=== PATIENT | female | born 1940 | race Caucasian/White ===

== ENCOUNTER 2018-03-14 11:00 | Day surgery (SDC) | payer MEDICARE, OTHER ==
[~2018-03-14] VITALS: Ht 160 cm; Wt 99.3 kg
[~2018-03-14 11:00] MED LIST: ACETAMIN-CODE12.5 ML PO; ATEN100 PO; ATENOLOL; BUME2 PO; CEPH500 PO; CLOT10 SS; CLOTRIMAZOLE MM; CODACE30 PO; COLCRYS0.6 MG PO; DILTIAZEM 240 MG PO; Dexamethasone4 MG PO; Diltiazem ER240 M1 PO; HYDACE5325 PO; HYDCHL25 PO; IBUP800 PO; LISINOPRIL; MECL25 PO; MERIPEX; METF500 PO; METF500C PO; METFORMIN; MINO100 PO; MIRAPEX; NAPR220 PO; NAPR375 PO; NYSTRI30T TOP; OMEP20ER PO; ONDA8 PO; PRAM.5 PO; ROPI2 PO; [UNRECOGNIZED DRUG - OTHER] PO
[2018-03-14] MEDS ORDERED: POTCHL10ER PO (11:19)
[2018-03-14] MEDS ORDERED: NYSTRITC (11:20)
[2018-03-14] MEDS ORDERED: ANASTROZOLE5 GM (11:20)
[2018-03-14] MEDS ORDERED: ASPI81CH (11:20)
[2018-03-14] MEDS ORDERED: Hair, Skin & N1 EACH (11:21)
[2018-03-14] MEDS ORDERED: CHOL10002 (11:21)
== END 2018-03-14 12:17 | disposition home or self-care (01) ==
LOC: ORSCSDS 11:00
PROVIDERS: Anesthesiology
PROC: 3E0R33Z Introduction of Anti-inflammatory into Spinal Canal, Percutaneous Approach (ICD-10-PCS; principal; 2018-03-14 12:00)
DX: M51.16 Intervertebral disc disorders with radiculopathy, lumbar region (principal); M96.1 Postlaminectomy syndrome, not elsewhere classified; E11.9 Type 2 diabetes mellitus without complications; I10 Essential (primary) hypertension; Z87.891 Personal history of nicotine dependence; E66.01 Morbid (severe) obesity due to excess calories; Z68.39 Body mass index [BMI] 39.0-39.9, adult; Z79.84 Long term (current) use of oral hypoglycemic drugs; Z79.899 Other long term (current) drug therapy
CPT/HCPCS: J1040; J2001

== ENCOUNTER 2018-10-29 13:57 | Day surgery (SDC) | payer MEDICARE, OTHER ==
[~2018-10-29] VITALS: Ht 160 cm; Wt 92.8 kg
[~2018-10-29 13:57] MED LIST changes: +ANASTROZOLE5 GM; +ASPI81CH; +CHOL10002; +ESCI5 PO; +Hair, Skin & N1 EACH; +NYSTRITC; +POTCHL10ER PO
== END 2018-10-29 14:44 | disposition home or self-care (01) ==
LOC: ORSCSDS 13:57
PROVIDERS: Anesthesiology
PROC: 3E0R33Z Introduction of Anti-inflammatory into Spinal Canal, Percutaneous Approach (ICD-10-PCS; principal; 2018-10-29 14:45)
DX: M51.16 Intervertebral disc disorders with radiculopathy, lumbar region (principal); M96.1 Postlaminectomy syndrome, not elsewhere classified; I10 Essential (primary) hypertension; F32.9 Major depressive disorder, single episode, unspecified; E11.9 Type 2 diabetes mellitus without complications; E66.9 Obesity, unspecified; Z68.36 Body mass index [BMI] 36.0-36.9, adult; Z79.82 Long term (current) use of aspirin; Z79.84 Long term (current) use of oral hypoglycemic drugs; Z79.899 Other long term (current) drug therapy
CPT/HCPCS: J1040

== ENCOUNTER → 2018-12-29 | Outpatient (CLI) | payer MEDICARE, OTHER | END | disposition home or self-care (01) | LOC: LAB 16:15 → LAB SHORT 16:15 | DX: M25.571 Pain in right ankle and joints of right foot (principal); R60.9 Edema, unspecified | CPT/HCPCS: 84550; 85379; 85651 ==

== ENCOUNTER 2020-06-20 09:30 | Day surgery (SDC) | payer MEDICARE, OTHER ==
[~2020-06-20] VITALS: Ht 160 cm; Wt 100.4 kg
[2020-06-20] MEDS ORDERED: PRAM.5 PO (10:08)
== END 2020-06-20 10:20 | disposition home or self-care (01) ==
LOC: ORSCSDS 09:30
PROVIDERS: Anesthesiology
PROC: 3E0R33Z Introduction of Anti-inflammatory into Spinal Canal, Percutaneous Approach (ICD-10-PCS; principal; 2020-06-20 12:00)
PROC: 3E0R3BZ Introduction of Anesthetic Agent into Spinal Canal, Percutaneous Approach (ICD-10-PCS; principal; 2020-06-20 12:00)
DX: M54.16 Radiculopathy, lumbar region (principal); M96.1 Postlaminectomy syndrome, not elsewhere classified; I10 Essential (primary) hypertension; Z79.899 Other long term (current) drug therapy; Z79.84 Long term (current) use of oral hypoglycemic drugs; E11.9 Type 2 diabetes mellitus without complications; E66.01 Morbid (severe) obesity due to excess calories; Z68.39 Body mass index [BMI] 39.0-39.9, adult
CPT/HCPCS: J1040

== ENCOUNTER → 2020-07-06 | Outpatient (CLI) | payer MEDICARE | LOC: LAB 13:50 → LAB SHORT 13:50 | DX: E11.42 Type 2 diabetes mellitus with diabetic polyneuropathy (principal) | CPT/HCPCS: 82043 ==

== ENCOUNTER 2021-02-06 12:57 | Day surgery (SDC) | payer MEDICARE ==
[~2021-02-06] VITALS: Ht 160 cm; Wt 102.4 kg
== END 2021-02-06 15:00 | disposition home or self-care (01) ==
LOC: ORSCSDS 12:57
PROVIDERS: Anesthesiology
PROC: 3E0R33Z Introduction of Anti-inflammatory into Spinal Canal, Percutaneous Approach (ICD-10-PCS; principal; 2021-02-06 14:00)
DX: M96.1 Postlaminectomy syndrome, not elsewhere classified (principal); M54.16 Radiculopathy, lumbar region; E66.01 Morbid (severe) obesity due to excess calories; Z68.41 Body mass index [BMI] 40.0-44.9, adult; I10 Essential (primary) hypertension; E11.9 Type 2 diabetes mellitus without complications; K21.9 Gastro-esophageal reflux disease without esophagitis; F32.9 Major depressive disorder, single episode, unspecified; Z87.891 Personal history of nicotine dependence; Z79.84 Long term (current) use of oral hypoglycemic drugs; Z79.899 Other long term (current) drug therapy
CPT/HCPCS: 82947; J1040

== ENCOUNTER → 2021-04-24 | Outpatient (CLI) | payer MEDICARE ==
[2021-04-24 19:35] LABS: Bun/Creatinine Ratio 43.3 (12.0-20.0); Creatinine, Blood 0.92 mg/dL (0.40-1.00)
== END | disposition home or self-care (01) ==
LOC: LAB SHORT 17:41
PROVIDERS: Hospitalist
DX: N30.00 Acute cystitis without hematuria (principal)
CPT/HCPCS: 80048; 87077; 87086; 87186

== ENCOUNTER 2022-10-18 09:34 | Emergency (ER) | payer MEDICARE ==
[~2022-10-18] VITALS: Ht 160 cm; Wt 97.5 kg
[2022-10-18] MEDS ORDERED: ANASTROZOLE1 M7 PO (10:31)
[2022-10-18] MEDS ORDERED: ALLO300 PO (10:32)
[2022-10-18 10:52] LABS: Albumin, Blood 3.4 g/dL (3.4-5.0); Bilirubin, Total 1.1 mg/dL (0.1-1.0); Bun/Creatinine Ratio 44.9 (12.0-20.0); Calcium, Blood 9.5 mg/dL (8.5-10.1); Creatinine, Blood 0.8 mg/dL (0.40-1.00); Globulin, Blood 3.4 g/dL (2.2-4.0); Potassium, Blood 3.1 mmol/L (3.5-5.5); Total Protein, Blood 6.8 g/dL (6.4-8.2)
[2022-10-18 11:35] VITALS: BP 110/55
[2022-10-18 12:00] LABS: BASOPHILS ABSOLUTE AUTO 0.06 K/mm3 (0.00-0.23); BASOPHILS PERCENT AUTO 0 % (0-2); EOSINOPHILS ABSOLUTE AUTO 0.09 K/mm3 (0.00-0.68); EOSINOPHILS PERCENT AUTO 1 % (0-6); Hematocrit 42.3 % (33.0-51.0); Hemoglobin 14.6 g/dL (11.5-16.0); IMMATURE GRAN ABSOLUTE AUTO 0.18 K/mm3 (0.00-0.10); IMMATURE GRAN PERCENT AUTO 1 % (0-1); LYMPHOCYTES ABSOLUTE AUTO 2.53 K/mm3 (0.84-5.20); LYMPHOCYTES PERCENT AUTO 16 % (21-46); MONOCYTES ABSOLUTE AUTO 1.29 K/mm3 (0.16-1.47); MONOCYTES PERCENT AUTO 8 % (4-13); Mean Corpuscular HGB 31.2 pg (26.0-34.0); Mean Corpuscular HGB Conc 34.5 g/dL (31.5-36.5); Mean Corpuscular Volume 90 fL (80-100); Mean Platelet Volume 10.1 fL (9.1-12.4); NEUTROPHILS ABSOLUTE AUTO 12.18 K/mm3 (1.96-9.15); NEUTROPHILS PERCENT AUTO 75 % (41-73); Platelet Count 273 K/mm3 (150-400); RDW Coefficient Variation 13.6 % (11.7-14.2); Red Blood Cell Count 4.68 M/mm3 (3.80-5.20); White Blood Cell Count 16.33 K/mm3 (4.00-11.30)
[2022-10-18] MEDS ORDERED: Magic Bullet10 MG PR (12:16)
[2022-10-18] MEDS ORDERED: Magnesium Citr296 ML PO (12:16)
== END 2022-10-18 12:43 | disposition home or self-care (01) ==
LOC: ER 09:34
PROVIDERS: Emergency Medicine
DX: K59.00 Constipation, unspecified (principal); I10 Essential (primary) hypertension; E11.9 Type 2 diabetes mellitus without complications; Z85.3 Personal history of malignant neoplasm of breast; Z85.42 Personal history of malignant neoplasm of other parts of uterus; Z79.84 Long term (current) use of oral hypoglycemic drugs; Z79.899 Other long term (current) drug therapy; Z87.891 Personal history of nicotine dependence
CPT/HCPCS: 36415; 74177; 80053; 83690; 85025; 96374-59; 99284-25; J1885; Q9967

== ENCOUNTER → 2023-01-02 | Outpatient (CLI) | payer MEDICARE ==
[~2023-01-02] MED LIST changes: +ALLO300 PO; +ANASTROZOLE1 M7 PO; +BENZ100A PO; +Magic Bullet10 MG PR; +Magnesium Citr296 ML PO
== END ==
LOC: LAB SHORT 13:37 → LAB 13:37
DX: J42 Unspecified chronic bronchitis (principal)
CPT/HCPCS: 87070; 87205

== ENCOUNTER 2023-04-23 07:32 | Day surgery (SDC) | payer MEDICARE ==
[~2023-04-23] VITALS: Ht 160 cm; Wt 99.4 kg
[2023-04-23] MEDS ORDERED: Vitamin D1000 UNI1 PO (08:29)
[2023-04-23] MEDS ORDERED: MELATONIN3 M1 PO (08:29)
[2023-04-23] MEDS ORDERED: POTA10T PO (08:29)
[2023-04-23] MEDS ORDERED: GUAI600T33 PO (08:30)
[2023-04-23] MEDS ORDERED: GLIP10 PO (08:30)
--- NOTE | 2023-04-23 08:47 | NUR ---
04/23/23 0847 Sneha Paredes TETRACAINE PLACED IN RIGHT EYE AT 0821. PLEDGET PLACED IN RIGHT EYE AT 0824. PATIENT TOLERATED WELL.
[2023-04-23 09:32] VITALS: BP 133/71
--- NOTE | 2023-04-23 09:36 | NUR ---
04/23/23 0936 LILLIANA SIERRA IV REMOVED W/O DIFF. JOSEFA WELL. CANNULA INTACT
== END 2023-04-23 10:00 | disposition home or self-care (01) ==
LOC: ORSCSDS 07:32
PROVIDERS: Student in an Organized Health Care Education/Training Program
PROC: 08RJ3JZ Replacement of Right Lens with Synthetic Substitute, Percutaneous Approach (ICD-10-PCS; principal; 2023-04-23 09:00)
DX: E11.36 Type 2 diabetes mellitus with diabetic cataract (principal); I10 Essential (primary) hypertension; G25.81 Restless legs syndrome; Z79.84 Long term (current) use of oral hypoglycemic drugs; Z79.899 Other long term (current) drug therapy; Z87.891 Personal history of nicotine dependence
CPT/HCPCS: 82947; J2250; J3010; J7040; V2632

== ENCOUNTER 2023-05-07 07:55 | Day surgery (SDC) | payer MEDICARE ==
[~2023-05-07] VITALS: Ht 154.9 cm; Wt 93.4 kg
[~2023-05-07 07:55] MED LIST changes: +GLIP10 PO; +GUAI600T33 PO; +MELATONIN3 M1 PO; +POTA10T PO; +Vitamin D1000 UNI1 PO
[2023-05-07] MEDS ORDERED: OZEMPIC1 MG/0.72 SQ (08:25)
[2023-05-07] MEDS ORDERED: TOPROL XL50 M1 PO (08:26)
[2023-05-07] MEDS ORDERED: ALBU90OI INH (08:37)
[2023-05-07 09:25] VITALS: BP 112/80
--- NOTE | 2023-05-07 10:14 | NUR ---
05/07/23 1014 Danish Godfrey IV REMOVED INTACT. SITE WNL.
== END 2023-05-07 09:42 | disposition home or self-care (01) ==
LOC: ORSCSDS 07:55
PROVIDERS: Student in an Organized Health Care Education/Training Program
PROC: 08RK3JZ Replacement of Left Lens with Synthetic Substitute, Percutaneous Approach (ICD-10-PCS; principal; 2023-05-07 09:00)
DX: E11.36 Type 2 diabetes mellitus with diabetic cataract (principal); H25.12 Age-related nuclear cataract, left eye; Z96.1 Presence of intraocular lens; I10 Essential (primary) hypertension; Z68.38 Body mass index [BMI] 38.0-38.9, adult; Z87.891 Personal history of nicotine dependence; Z79.84 Long term (current) use of oral hypoglycemic drugs; Z79.899 Other long term (current) drug therapy
CPT/HCPCS: 82947; J2250; J7040; V2632

== ENCOUNTER 2024-02-13 06:43 | Inpatient (IN) | payer MEDICARE ==
[2024-02-13] VITALS (30 sets, daily range): BP systolic 97–162; BP diastolic 45–93
[~2024-02-13] VITALS: Ht 154.9 cm; Wt 90.0 kg
[~2024-02-13 06:43] MED LIST changes: +ALBU90OI INH; +Acetaminophen 500 MG Tab PO SCH; +CeFAZolin Sodium 2,000 MG in NS 100 ML IV SCH; +Chlorhexidine Mouth Care 15 ML UDC MT SCH; +ESCI10 PO; +Lactated Ringer's 1,000 ML IV SCH; +NORT10 PO; +OZEMPIC1 MG/0.72 SQ; +OxyCODONE HCL 10 MG TABCR PO SCH; +PRAM.125 PO; +Ropivacaine 0.5% HCl/Pf 123.125 MG,EPINEPHrine HCL 0.25 MG,Ketorolac Tromethamine 15 MG... INFIL SCH; +TOPROL XL50 M1 PO; +Tranexamic Acid 100 ML IV SCH
[2024-02-13] MEDS ORDERED: NS 100 ML IV ONE ×2 (06:55→17:31)
[2024-02-13] MEDS ORDERED: CeFAZolin Sodium 2,000 MG VIAL ONE ×2 (06:55→17:31)
[2024-02-13] MEDS ORDERED: Acetaminophen650 M1 PO (07:34)
[2024-02-13] MEDS ORDERED: POLYETHYLENE G500 G1 PO (07:36)
[2024-02-13] MEDS ORDERED: Percocet 5-3251 EACH PO (07:38)
[2024-02-13] MEDS ORDERED: FentaNYL Citrate 50 MCG/ML 2 ML Injection ONE ×3 (07:42→12:26)
[2024-02-13] MEDS ORDERED: Midazolam HCl 1MG / ML 2ML Vial ONE (07:42)
[2024-02-13] MEDS ORDERED: CENTRUM SILVER1 EAC2 PO (08:17)
--- NOTE | 2024-02-13 08:19 | NUR ---
0700 TO SDS VIA WC. TWO PERSON ASSIST WITH GATE BELT TO BED. ASSIST WITH CHANGING INTO GOWN. PREOP TEACHING DONE. 0755 AWAITING ULTRASOUND MACHINE TO DO BLOCK. 08 TIME OUT FOR INTRASCALINE BLOCK, WITH DR GLASS 824 FENTANYLS 50 MCG GIVEN, PT PLACED ON 2L N/C OF OXYGEN AND MONITORS ON 825 BLOCK STARTED 840 BLOCK COMPLETED
[2024-02-13] MEDS ORDERED: SuccINYLCHOLINE Chloride 100 MG/5 ML 5MLSYR ONE (08:50)
[2024-02-13] MEDS ORDERED: propofoL 20 ML IV ONE (08:50)
[2024-02-13] MEDS ORDERED: Rocuronium Bromide 10 MG/ML 5ML Injection IV ONE (08:50)
[2024-02-13] MEDS ORDERED: Dexamethasone Sod Phos 10 MG/ML 1ML VIAL ONE (09:49)
[2024-02-13] MEDS ORDERED: Ondansetron HCl 2 MG / ML 2ML Vial ONE (11:26)
[2024-02-13] MEDS ORDERED: DiphenhydrAMINE HCL 25 MG Cap PO PRN (11:55)
[2024-02-13] MEDS ORDERED: Metoclopramide HCl 5MG / ML 2ML Vial IV PRN (11:55)
[2024-02-13] MEDS ORDERED: Bisacodyl 10 MG Supp PR PRN (11:55)
[2024-02-13] MEDS ORDERED: Promethazine HCl 25 MG Tab PO PRN (11:55)
[2024-02-13] MEDS ORDERED: Lactated Ringer's 1,000 ML IV SCH (12:00)
[2024-02-13] MEDS ORDERED: HYDROmorphone HCl/Pf 1MG SYR IV PRN (12:00)
[2024-02-13] MEDS ORDERED: Magnesium Hydroxide Conc 10 ML UDC PO PRN (12:00)
[2024-02-13] MEDS ORDERED: Ondansetron HCl 2 MG / ML 2ML Vial IV PRN (12:00)
[2024-02-13] MEDS ORDERED: Prochlorperazine Edisylate 10 mg Vial IV PRN (12:00)
[2024-02-13] MEDS ORDERED: OxyCODONE HCL 5 MG TAB PO PRN ×2 (12:05)
[2024-02-13] MEDS ORDERED: HYDROmorphone HCl/Pf 1MG SYR ONE (12:49)
--- NOTE | 2024-02-13 14:20 | NUR ---
PT ARRIVED TO THE ROOM AT APPROXIMATELY 1406. PT DENIES PAIN AT THIS TIME. VSS. PT'S DAUGHTER TUCKER IS PRESENT AND ASSISTING PT TO EAT. SHOULDER IMMOBILIZER IN PLACE FOR L ARM. CALL LIGHT WITHIN REACH.
[2024-02-13] MEDS ORDERED: Acetaminophen 500 MG Tab PO SCH (16:00)
[2024-02-13] MEDS ORDERED: CeFAZolin Sodium 2,000 MG in NS 100 ML IV SCH (17:00)
--- NOTE | 2024-02-13 17:01 | NUR ---
SHIFT SUMMARY PT IS POD#0 FROM L REVERSE TOTAL SHOULDER. PAIN HAS BEEN MANAGED WITH TYLENOL. PT IS ALERT/ORIENTED AND USES THE CALL LIGHT APPROPRIATELY. FAMILY PRESENT AND SUPPORTIVE POST-OP.
[2024-02-13] MEDS ORDERED: Insulin Human Lispro 100 Units/ML 3ML Syringe SC SCH (17:25)
[2024-02-13] MEDS ORDERED: Ketorolac Tromethamine 15mg Vial IV SCH (18:00)
[2024-02-13] MEDS ORDERED: Docusate Sodium 100 MG Cap PO SCH (21:00)
[2024-02-14] MEDS ORDERED: CeFAZolin Sodium 2,000 MG VIAL ONE (00:52)
[2024-02-14] MEDS ORDERED: NS 100 ML IV ONE (00:52)
[2024-02-14 03:09] VITALS: BP 103/58
[2024-02-14 05:12] LABS: BASOPHILS ABSOLUTE AUTO 0.03 K/mm3 (0.00-0.23); BASOPHILS PERCENT AUTO 0 % (0-2); EOSINOPHILS PERCENT AUTO 0 % (0-6); Hematocrit 35.4 % (33.0-51.0); IMMATURE GRAN ABSOLUTE AUTO 0.07 K/mm3 (0.00-0.10); IMMATURE GRAN PERCENT AUTO 1 % (0-1); LYMPHOCYTES ABSOLUTE AUTO 1.53 K/mm3 (0.84-5.20); LYMPHOCYTES PERCENT AUTO 13 % (21-46); MONOCYTES ABSOLUTE AUTO 1.14 K/mm3 (0.16-1.47); MONOCYTES PERCENT AUTO 10 % (4-13); Mean Corpuscular HGB 30.7 pg (26.0-34.0); Mean Corpuscular HGB Conc 31.1 g/dL (31.5-36.5); Mean Corpuscular Volume 99 fL (80-100); Mean Platelet Volume 9.8 fL (9.1-12.4); NEUTROPHILS ABSOLUTE AUTO 8.98 K/mm3 (1.96-9.15); NEUTROPHILS PERCENT AUTO 76 % (41-73); Platelet Count 263 K/mm3 (150-400); RDW Coefficient Variation 14.9 % (11.7-14.2); RDW Standard Deviation 52.6 fL (35.1-46.3); Red Blood Cell Count 3.58 M/mm3 (3.80-5.20); White Blood Cell Count 11.75 K/mm3 (4.00-11.30)
[2024-02-14 05:30] LABS: Bun/Creatinine Ratio 53.3 (12.0-20.0); Calcium, Blood 9.3 mg/dL (8.5-10.1); Creatinine, Blood 0.77 mg/dL (0.40-1.00); Magnesium, Blood 2.1 mg/dL (1.6-2.4); Potassium, Blood 3.5 mmol/L (3.5-5.5)
--- NOTE | 2024-02-14 05:38 | NUR ---
SHIFT SUMMARY POD 1 L TOTAL REVERSE SHOUDLER PT RESTED DURING THE SHIFT. PAIN MANAGED PER EMAR. TOLERATING PO INTAKE. RYAN DRAINING YELLOW URINE. PT IN IMMOBILIZER ON L SIDE, SLING ON THE R SIDE. PT TO HAVE IMMOBILIZER ON R SIDE WHEN GETTING UP. DRESSING TO L SHOULDER IS C/D/I. VSS. PLAN TO GO BACK TO [facility] TODAY. NO OTHER COCERNS AT THIS TIME, CALL LIGHT WITHIN REACH
[2024-02-14 07:08] VITALS: BP 112/65
[2024-02-14] MEDS ORDERED: Aspirin 81 MG Chew PO SCH (09:00)
[2024-02-14] MEDS ORDERED: FentaNYL Citrate 50 MCG/ML 2 ML Injection ONE (11:18)
[2024-02-14] MEDS ORDERED: Bupivacaine 0.5% Inj 50 ML Vial ONE (11:19)
[2024-02-14] MEDS ORDERED: Lidocaine 2%-Epineph 1:200000 20 ML SDV ONE (11:19)
[2024-02-14] MEDS ORDERED: Midazolam HCl 1MG / ML 2ML Vial ONE (11:20)
[2024-02-14] MEDS ORDERED: ASPI81CH PO (12:03)
[2024-02-14 12:15] VITALS: BP 115/74
--- NOTE | 2024-02-14 15:10 | NUR ---
REPORT CALLED TO [facility] AT 1504. RN NOTIFIED THAT [facility] WILL BE IN PACKET THAT ARE TRANSFERED WITH PT.
[2024-02-14 16:17] VITALS: BP 120/74
--- NOTE | 2024-02-14 17:36 | NUR ---
DISCHARGE UPDATE TRANSPORT ARRIVED AT 1725 TO GET PT. PT LEFT SURG FLOOR AT 1730 VIA WHEELCHAIR AND ON RA. PT PERSONAL BELONGINGS WITH PT DATUHGTER AT TIME OF DISCHARGE TO [facility]. DISCHARGE PACKET PROVIDED TO TRANSPORT TO GIVE TO [facility] STAFF. [facility]IPTS IN ENVELOPE AND RN NOTIFED OF LOCATION OF HARD SCRIPT WHEN REPORT WAS CALLED IN PREVIOUSLY BY THIS RN.
== END 2024-02-14 17:22 | DRG 322 ==
LOC: ORSCMMR 06:43 → ORD 08:00 → ORSCMMR 08:00 → SURS 11:49
PROVIDERS: ADMIT Orthopaedic Surgery
PROC: 0RRK00Z Replacement of Left Shoulder Joint with Reverse Ball and Socket Synthetic Substitute, Open Approach (ICD-10-PCS; principal; 2024-02-13 08:00)
DX: S42.232A 3-part fracture of surgical neck of left humerus, initial encounter for closed fracture (principal); E11.9 Type 2 diabetes mellitus without complications; I10 Essential (primary) hypertension; G25.81 Restless legs syndrome; Z98.890 Other specified postprocedural states; Z88.8 Allergy status to other drugs, medicaments and biological substances; Z79.899 Other long term (current) drug therapy; Z90.710 Acquired absence of both cervix and uterus; Z87.891 Personal history of nicotine dependence
CPT/HCPCS: 36415; 73030; 80048; 82947; 83735; 85025; 94760; 97110; 97162; 97530; A9270; J0171; J0330; J0690; J0735; J1100; J1170; J1885; J2250; J2405; J2704; J2795; J3010; J7120

== ENCOUNTER → 2025-03-18 | Outpatient (CLI) | payer MEDICARE ==
[~2025-03-18] MED LIST changes: +ASPI81CH PO; -Acetaminophen 500 MG Tab PO SCH; +Acetaminophen650 M1 PO; +BENADRYL25 MG PO; +CENTRUM SILVER1 EAC2 PO; +CYMBALTA30 M1 PO; -CeFAZolin Sodium 2,000 MG in NS 100 ML IV SCH; -Chlorhexidine Mouth Care 15 ML UDC MT SCH; +DICLOFENAC SODI50 GM TOP; +DOCU100 PO; +DULCOLAX400 MG/5 M PO; +FERROUS SULFAT325 M3 PO; -Lactated Ringer's 1,000 ML IV SCH; +METO25ER PO; +MICONAZOLE NITR85 GM TOP; +OSELTAMIVIR PHO30 M1 PO; +OZEMPIC1 MG/0.72 SC; -OxyCODONE HCL 10 MG TABCR PO SCH; +POLYETHYLENE G500 G1 PO; +PRAMIPEXOLE DIHY1 MG PO; +PRED20 PO; +PREG50 PO; +Percocet 5-3251 EACH PO; -Ropivacaine 0.5% HCl/Pf 123.125 MG,EPINEPHrine HCL 0.25 MG,Ketorolac Tromethamine 15 MG... INFIL SCH; +Tessalon200 MG PO; -Tranexamic Acid 100 ML IV SCH; +VITAMIN D325 MC3 PO; +ZYLOPRIM300 MG PO
[2025-03-19 00:48] LABS: Anion Gap 7.0 mmol/L (3-11); Blood Urea Nitrogen 24.0 mg/dL (8-24); CO2, Blood 27.0 mmol/L (21-32); Calcium, Blood 10.6 mg/dL (8.5-10.1); Chloride, Blood 103.0 mmol/L (98-108); Creatinine, Blood 0.57 mg/dL (0.40-1.00); Glucose, Blood 240.0 mg/dL (70-99); Potassium, Blood 4.2 mmol/L (3.5-5.5); Sodium, Blood 133.0 mmol/L (136-145)
== END | disposition home or self-care (01) ==
LOC: LAB SHORT 11:15 → LAB 11:15
PROVIDERS: Hospitalist
DX: E87.6 Hypokalemia (principal); E87.1 Hypo-osmolality and hyponatremia
CPT/HCPCS: 80048